=== PATIENT | male | born 1995 | race Caucasian/White ===

== ENCOUNTER 2020-10-20 20:19 | Emergency (ER) | payer MEDICAID, OTHER ==
[~2020-10-20] VITALS: Ht 172.7 cm; Wt 77.0 kg
[~2020-10-20 20:19] MED LIST: CYCL-120 PO; HYDR-4383 PO
[2020-10-20 20:26] VITALS: BP 133/85
== END 2020-10-20 21:23 | disposition left against medical advice (07) ==
LOC: ER 20:21
DX: R06.02 Shortness of breath (principal); Z53.21 Procedure and treatment not carried out due to patient leaving prior to being seen by health care provider

== ENCOUNTER 2021-11-14 16:21 | Inpatient (IN) | payer MEDICAID, OTHER ==
[~2021-11-14] VITALS: Ht 172.7 cm; Wt 63.6 kg
[2021-11-14] MEDS ORDERED: pantoprazole 40MG/D5 100ML BAG 100 ML IV STA (17:08)
[2021-11-14] MEDS ORDERED: normal saline 1000ML IV soln IVB ONE (17:10)
[2021-11-14] MEDS ORDERED: ondansetron 4mg rapidly disintigrating tab PO ONE (17:10)
[2021-11-14] MEDS ORDERED: pantoprazole 40MG/NS 100ML BAG 100 ML IV STA (17:11)
[2021-11-14 17:44] LABS: BASOPHILS % (AUTO) 0.4 % (0-1); EOSINOPHILS # (AUTO) 0.1 X10'3 (0-0.9); EOSINOPHILS % (AUTO) 0.6 % (0-6); HEMATOCRIT 40.6 % (42.0-52.0); HEMOGLOBIN 14.2 g/dl (14.0-17.9); LYMPHOCYTES # (AUTO) 1.4 X10'3 (1.1-4.8); LYMPHOCYTES % (AUTO) 14.6 % (21-51); MEAN CORPUSCULAR HEMOGLOBIN 30.9 PG (27.0-31.0); MEAN CORPUSCULAR HGB CONC 35.1 g/dL (33.0-36.5); MEAN CORPUSCULAR VOLUME 88.1 FL (78-98); MEAN PLATELET VOLUME 7.9 FL (7.4-10.4); MONOCYTES # (AUTO) 0.8 X10'3 (0-0.9); MONOCYTES % (AUTO) 7.9 % (2-12); NEUTROPHILS # (AUTO) 7.3 X10'3 (1.8-7.7); NEUTROPHILS % (AUTO) 76.5 % (42-75); PLATELET COUNT 292 X10'3 (140-440); RED BLOOD COUNT 4.61 X10'6 (4.70-6.10); RED CELL DISTRIBUTION WIDTH 13.1 % (11.5-14.5); WHITE BLOOD COUNT 9.5 X10'3 (4.5-11.0)
[2021-11-14 17:57] LABS: APTT 28 SECONDS (22-32)
[2021-11-14 18:02] LABS: ALANINE AMINOTRANSFERASE 18 U/L (12-78); ALBUMIN/GLOBULIN RATIO 1.1 (1.1-1.5); ALKALINE PHOSPHATASE 76 IU/L (46-116); ANION GAP 11 (8-16); ASPARTATE AMINO TRANSFERASE 13 U/L (10-37); BILIRUBIN,TOTAL 0.5 MG/DL (0.1-1.0); BLOOD UREA NITROGEN 22 MG/DL (7-18); BUN/CREATININE RATIO 26.5 (5.4-32.0); CALCIUM 9.5 MG/DL (8.5-10.1); CHLORIDE 101 MMOL/L (99-107); CREATININE 0.83 MG/DL (0.60-1.10); GLUCOSE 106 MG/DL (70-104); LIPASE < 50 U/L (73-393); POTASSIUM 3.1 MMOL/L (3.5-5.1); SODIUM 141 MMOL/L (135-145); TOTAL CARBON DIOXIDE 29.4 MMOL/L (24-32); TOTAL PROTEIN 7.6 G/DL (6.4-8.2); eGFR > 90 ML/MIN
--- NOTE | 2021-11-14 19:53 | NUR ---
Pt Daily IV fentanyl user. Last use this morning and states he will show withdrawal symptoms tomorrow morning. Pt will advise best venous access.
[2021-11-14] MEDS ORDERED: acetaminophen 650mg rectal suppository RC PRN (20:30)
[2021-11-14] MEDS ORDERED: mag hydrox/Alum hydrox/simeth 30ml oral suspension PO PRN (20:30)
[2021-11-14] MEDS ORDERED: ondansetron 4mg rapidly disintigrating tab PO PRN (20:30)
[2021-11-14] MEDS ORDERED: potassium CL 10mEq/100ml bag 100 ML IV PRN (20:30)
[2021-11-14] MEDS ORDERED: diphenhydrAMINE 25mg capsule PO PRN (20:30)
[2021-11-14] MEDS ORDERED: HYDROmorphone inj. 0.5 MG/0.5 ML DISP.SYRIN IV PRN (20:30)
[2021-11-14] MEDS ORDERED: potassium Cl 20 mEq SR tablet PO PRN (20:30)
[2021-11-14] MEDS ORDERED: metoclopramide 5 mg/ml inj IV PRN (20:30)
[2021-11-14] MEDS ORDERED: morphine 2 MG/ML inj. syringe IV PRN (20:30)
[2021-11-14] MEDS ORDERED: bisacodyl 10mg suppository rectal RC PRN (20:30)
[2021-11-14] MEDS ORDERED: magnesium 2GM in 50ml NS 50 ML IV PRN (20:30)
[2021-11-14] MEDS ORDERED: acetaminophen 325mg tablet PO PRN ×2 (20:30)
[2021-11-14] MEDS ORDERED: magnesium Cl slow-release 64mg tablet PO PRN (20:30)
[2021-11-14] MEDS ORDERED: magnesium 4gm in 100ml NS 100 ML IV PRN (20:30)
[2021-11-14] MEDS ORDERED: magnesium hydroxide 30ml (MOM) UD suspension PO PRN (20:30)
[2021-11-14] MEDS: normal saline 1000ml 1,000 ML IV SCH (20:54)
[2021-11-14] MEDS: pantoprazole 40MG/NS 100ML BAG 100 ML IV SCH ×2 (20:55→21:00)
[2021-11-14] MEDS ORDERED: temazepam 15mg capsule PO PRN (21:00)
[2021-11-14 21:10] LABS: CLARITY,URINE CLEAR (Clear); COLOR,URINE YELLOW (Yellow); GLUCOSE, URINE NEGATIVE (Neg); KETONES,URINE TRACE mg/dl (Neg); LEUKOCYTE ESTERASE ,URINE NEGATIVE (Neg); NITRITES, URINE NEGATIVE (Neg); OCCULT BLOOD,URINE NEGATIVE (Neg); PROTEIN,URINE NEGATIVE (Neg); UROBILINOGEN,URINE 0.2 E.U/dL (0.2-1.0)
[2021-11-14 21:11] LABS: CREATINE KINASE 119 U/L (39-308); MAGNESIUM 2.1 MG/DL (1.5-2.4); PHOSPHORUS 3.6 MG/DL (2.3-4.5)
[2021-11-14 21:14] LABS: UA COLLECTION TYPE CLN CATCH MIDSTREAM
[2021-11-14 21:19] LABS: URINE AMPHETAMINE SCREEN POSITIVE (Neg); URINE BARBITUATE SCREEN NEGATIVE (Neg); URINE BENZODIAZEPINES SCREEN NEGATIVE (Neg); URINE CANNABINOID SCREEN POSITIVE (Neg); URINE COCAINE SCREEN NEGATIVE (Neg); URINE METHADONE SCREEN NEGATIVE (Neg); URINE OPIATE SCREEN NEGATIVE (Neg); URINE PHENCYCLIDINE SCREEN NEGATIVE (Neg)
--- NOTE | 2021-11-14 21:30 | NUR ---
okayed clear liquids as tolerated until midnight. No red liquids.
[2021-11-14] MEDS: morphine 2 MG/ML inj. syringe IV PRN (21:40)
[2021-11-15] MEDS: pantoprazole 40MG/NS 100ML BAG 100 ML IV SCH ×7 (01:00→23:13)
[2021-11-15] MEDS: ondansetron/PF 4mg/2ml inj IV PRN ×2 (01:31→09:28)
[2021-11-15] MEDS: morphine 2 MG/ML inj. syringe IV PRN ×5 (01:31→23:56)
[2021-11-15] MEDS: normal saline 1000ml 1,000 ML IV SCH ×2 (06:30→16:58)
[2021-11-15 08:02] LABS: BASOPHILS # (AUTO) 0.1 X10'3 (0-0.2); BASOPHILS % (AUTO) 0.8 % (0-1); EOSINOPHILS # (AUTO) 0.1 X10'3 (0-0.9); EOSINOPHILS % (AUTO) 1.4 % (0-6); HEMATOCRIT 27.4 % (42.0-52.0); HEMOGLOBIN 9.6 g/dl (14.0-17.9); LYMPHOCYTES # (AUTO) 2.1 X10'3 (1.1-4.8); LYMPHOCYTES % (AUTO) 31.8 % (21-51); MEAN CORPUSCULAR HEMOGLOBIN 31.2 PG (27.0-31.0); MEAN CORPUSCULAR HGB CONC 35.1 g/dL (33.0-36.5); MEAN CORPUSCULAR VOLUME 88.7 FL (78-98); MEAN PLATELET VOLUME 8.5 FL (7.4-10.4); MONOCYTES # (AUTO) 0.5 X10'3 (0-0.9); MONOCYTES % (AUTO) 7.9 % (2-12); NEUTROPHILS # (AUTO) 3.9 X10'3 (1.8-7.7); NEUTROPHILS % (AUTO) 58.1 % (42-75); PLATELET COUNT 233 X10'3 (140-440); WHITE BLOOD COUNT 6.6 X10'3 (4.5-11.0)
[2021-11-15] MEDS: K and/or MAG REPLACEMENT MC SCH ×2 (08:19→20:00)
[2021-11-15] MEDS: nicotine 21mg patch - 24 hr TD SCH (08:19)
[2021-11-15] MEDS: piperacillin/tazo 3.375gm/50ml 50 ML IV SCH ×2 (08:19)
[2021-11-15] MEDS: docusate sod 100mg capsule PO SCH ×2 (08:19→19:31)
[2021-11-15 08:49] LABS: ALANINE AMINOTRANSFERASE 11 U/L (12-78); ALBUMIN 2.7 G/DL (3.4-5.0); ALBUMIN/GLOBULIN RATIO 0.9 (1.1-1.5); ALKALINE PHOSPHATASE 44 IU/L (46-116); ANION GAP 9 (8-16); ASPARTATE AMINO TRANSFERASE 13 U/L (10-37); BILIRUBIN,TOTAL 0.4 MG/DL (0.1-1.0); BLOOD UREA NITROGEN 30 MG/DL (7-18); BUN/CREATININE RATIO 39.5 (5.4-32.0); CALCIUM 7.9 MG/DL (8.5-10.1); CHLORIDE 108 MMOL/L (99-107); CREATININE 0.76 MG/DL (0.60-1.10); GLUCOSE 84 MG/DL (70-104); MAGNESIUM 1.8 MG/DL (1.5-2.4); SODIUM 141 MMOL/L (135-145); TOTAL CARBON DIOXIDE 24.2 MMOL/L (24-32); TOTAL PROTEIN 5.6 G/DL (6.4-8.2); eGFR > 90 ML/MIN
[2021-11-15] MEDS ORDERED: NO HOME MEDS (10:29)
--- NOTE | 2021-11-15 10:35 | NUR ---
To GI Lab. Transported via [facility] by FERNANDA.
[2021-11-15 10:43] VITALS: BP 136/67
[2021-11-15] MEDS ORDERED: fentaNYL/PF 50MCG/1 ML 2ML syringe ONE (10:49)
[2021-11-15] MEDS ORDERED: MIDAZolam 1 MG/ML 5ML VIAL ONE (10:49)
[2021-11-15] MEDS ORDERED: LIDOcaine Viscous 15ml cup ONE (10:49)
[2021-11-15 11:51] VITALS: BP 103/57
[2021-11-15 12:01] VITALS: BP 105/48
[2021-11-15 12:11] VITALS: BP 106/49
[2021-11-15 12:21] VITALS: BP 105/53
--- NOTE | 2021-11-15 12:37 | NUR ---
Report given to FERNANDA Joshi on the Surgical floor.
[2021-11-15] MEDS: HYDROcodone/acetaminophen 10/325mg tab PO PRN (17:11)
[2021-11-15 18:00] VITALS: BP 131/68
--- NOTE | 2021-11-15 18:24 | NUR ---
3 attempts made to start a second IV site due to incompatibility of zosyn and protonix. zosyn was unable to be hung. ER to send rn to ale[facility] start an IJ per day charge
[2021-11-15 19:33] LABS: HEMATOCRIT 25.7 % (42.0-52.0); HEMOGLOBIN 8.9 g/dl (14.0-17.9); MEAN CORPUSCULAR HEMOGLOBIN 31.2 PG (27.0-31.0); MEAN CORPUSCULAR HGB CONC 34.8 g/dL (33.0-36.5); MEAN CORPUSCULAR VOLUME 89.6 FL (78-98); MEAN PLATELET VOLUME 7.9 FL (7.4-10.4); PLATELET COUNT 241 X10'3 (140-440); RED BLOOD COUNT 2.86 X10'6 (4.70-6.10); RED CELL DISTRIBUTION WIDTH 12.9 % (11.5-14.5)
--- NOTE | 2021-11-15 19:34 | NUR ---
report received from Madelyn mccann to have a second line IV for medication ER call waiting for them patient complaint af pain 10 out of 10 morphine giving as order.
[2021-11-15] MEDS: LORazepam 2 mg/ml vial IV PRN ×2 (21:09→23:56)
[2021-11-15] MEDS: diphenhydrAMINE 50 mg/ml inj IV PRN (21:10)
[2021-11-16] VITALS: BP 132/84
[2021-11-16] MEDS: pantoprazole 40MG/NS 100ML BAG 100 ML IV SCH ×5 (01:00→20:54)
[2021-11-16] MEDS: piperacillin/tazo 3.375gm/50ml 50 ML IV SCH ×4 (01:33→23:38)
[2021-11-16] MEDS: normal saline 1000ml 1,000 ML IV SCH ×3 (02:30→22:30)
[2021-11-16] MEDS: LORazepam 2 mg/ml vial IV PRN ×2 (05:10→16:40)
[2021-11-16] MEDS: morphine 2 MG/ML inj. syringe IV PRN ×2 (05:10→11:29)
[2021-11-16 05:55] LABS: BASOPHILS % (AUTO) 0.5 % (0-1); EOSINOPHILS % (AUTO) 0.3 % (0-6); HEMATOCRIT 24.9 % (42.0-52.0); HEMOGLOBIN 8.9 g/dl (14.0-17.9); LYMPHOCYTES # (AUTO) 1.4 X10'3 (1.1-4.8); LYMPHOCYTES % (AUTO) 27.4 % (21-51); MEAN CORPUSCULAR HEMOGLOBIN 31.6 PG (27.0-31.0); MEAN CORPUSCULAR HGB CONC 35.9 g/dL (33.0-36.5); MEAN CORPUSCULAR VOLUME 88.2 FL (78-98); MEAN PLATELET VOLUME 7.6 FL (7.4-10.4); MONOCYTES # (AUTO) 0.3 X10'3 (0-0.9); MONOCYTES % (AUTO) 5.7 % (2-12); NEUTROPHILS # (AUTO) 3.5 X10'3 (1.8-7.7); NEUTROPHILS % (AUTO) 66.1 % (42-75); PLATELET COUNT 256 X10'3 (140-440); RED BLOOD COUNT 2.82 X10'6 (4.70-6.10); RED CELL DISTRIBUTION WIDTH 12.6 % (11.5-14.5); WHITE BLOOD COUNT 5.2 X10'3 (4.5-11.0)
[2021-11-16 06:19] LABS: ALANINE AMINOTRANSFERASE 14 U/L (12-78); ALKALINE PHOSPHATASE 53 IU/L (46-116); ANION GAP 13 (8-16); ASPARTATE AMINO TRANSFERASE 15 U/L (10-37); BILIRUBIN,TOTAL 0.5 MG/DL (0.1-1.0); BLOOD UREA NITROGEN 13 MG/DL (7-18); BUN/CREATININE RATIO 17.1 (5.4-32.0); CALCIUM 8.6 MG/DL (8.5-10.1); CHLORIDE 107 MMOL/L (99-107); CREATININE 0.76 MG/DL (0.60-1.10); GLUCOSE 76 MG/DL (70-104); MAGNESIUM 1.9 MG/DL (1.5-2.4); POTASSIUM 3.9 MMOL/L (3.5-5.1); SODIUM 140 MMOL/L (135-145); TOTAL CARBON DIOXIDE 19.9 MMOL/L (24-32); eGFR > 90 ML/MIN
[2021-11-16] MEDS: K and/or MAG REPLACEMENT MC SCH ×2 (06:28→20:00)
[2021-11-16] MEDS: docusate sod 100mg capsule PO SCH ×2 (06:28→20:57)
--- NOTE | 2021-11-16 06:44 | NUR ---
Report giving to Gisel.
[2021-11-16 07:00] VITALS: BP 123/69
[2021-11-16] MEDS: nicotine 21mg patch - 24 hr TD SCH (07:34)
[2021-11-16] MEDS: HYDROcodone/acetaminophen 5mg/325mg tablet PO PRN ×2 (07:38→16:40)
--- NOTE | 2021-11-16 09:47 | NUR ---
VO from dr hannon for clear liquid diet and ok to get a midline iv
--- NOTE | 2021-11-16 11:43 | NUR ---
Met with patient in regards to substance use and to see if patient wanted resources for treatment options. Patient would like to go to an inpatient rehab facility. I gave patient [facility] number to start the process. I also gave patient my card to call me with any questions.
[2021-11-16 20:00] VITALS: BP 114/64
[2021-11-16] MEDS: lactobacillus rhamnosus 10,000 MMU CELLS/CAPSULE PO SCH (20:57)
[2021-11-17] VITALS: BP 123/71
[2021-11-17] MEDS: HYDROcodone/acetaminophen 10/325mg tab PO PRN ×2 (00:59→11:13)
[2021-11-17] MEDS: pantoprazole 40MG/NS 100ML BAG 100 ML IV SCH ×3 (01:00→07:37)
[2021-11-17] MEDS: diphenhydrAMINE 50 mg/ml inj IV PRN (01:09)
[2021-11-17 07:00] VITALS: BP 127/76
[2021-11-17] MEDS: HYDROcodone/acetaminophen 5mg/325mg tablet PO PRN ×2 (07:36→10:01)
[2021-11-17] MEDS: nicotine 21mg patch - 24 hr TD SCH (07:36)
[2021-11-17] MEDS: normal saline 1000ml 1,000 ML IV SCH (07:37)
[2021-11-17] MEDS: lactobacillus rhamnosus 10,000 MMU CELLS/CAPSULE PO SCH (07:37)
[2021-11-17] MEDS: docusate sod 100mg capsule PO SCH (07:37)
[2021-11-17] MEDS: piperacillin/tazo 3.375gm/50ml 50 ML IV SCH (07:37)
[2021-11-17] MEDS: LORazepam 2 mg/ml vial IV PRN (09:49)
[2021-11-17 10:32] LABS: BASOPHILS % (AUTO) 0.2 % (0-1); EOSINOPHILS % (AUTO) 0 % (0-6); HEMATOCRIT 24.8 % (42.0-52.0); HEMOGLOBIN 8.8 g/dl (14.0-17.9); LYMPHOCYTES # (AUTO) 1.2 X10'3 (1.1-4.8); LYMPHOCYTES % (AUTO) 17.8 % (21-51); MEAN CORPUSCULAR HEMOGLOBIN 31.4 PG (27.0-31.0); MEAN CORPUSCULAR HGB CONC 35.4 g/dL (33.0-36.5); MEAN CORPUSCULAR VOLUME 88.7 FL (78-98); MEAN PLATELET VOLUME 7.5 FL (7.4-10.4); MONOCYTES # (AUTO) 0.4 X10'3 (0-0.9); MONOCYTES % (AUTO) 6.4 % (2-12); NEUTROPHILS # (AUTO) 5.1 X10'3 (1.8-7.7); NEUTROPHILS % (AUTO) 75.6 % (42-75); PLATELET COUNT 303 X10'3 (140-440); RED CELL DISTRIBUTION WIDTH 12.8 % (11.5-14.5); WHITE BLOOD COUNT 6.8 X10'3 (4.5-11.0)
[2021-11-17 10:43] LABS: ALANINE AMINOTRANSFERASE 15 U/L (12-78); ALBUMIN 3.2 G/DL (3.4-5.0); ALBUMIN/GLOBULIN RATIO 1.1 (1.1-1.5); ALKALINE PHOSPHATASE 51 IU/L (46-116); ANION GAP 11 (8-16); ASPARTATE AMINO TRANSFERASE 10 U/L (10-37); BILIRUBIN,TOTAL 0.2 MG/DL (0.1-1.0); BLOOD UREA NITROGEN 7 MG/DL (7-18); BUN/CREATININE RATIO 7.7 (5.4-32.0); CALCIUM 8.3 MG/DL (8.5-10.1); CHLORIDE 109 MMOL/L (99-107); CREATININE 0.91 MG/DL (0.60-1.10); GLUCOSE 140 MG/DL (70-104); SODIUM 142 MMOL/L (135-145); TOTAL CARBON DIOXIDE 22.3 MMOL/L (24-32); eGFR > 90 ML/MIN
[2021-11-17 11:00] VITALS: BP 131/78
[2021-11-17] MEDS: K and/or MAG REPLACEMENT MC SCH (11:11)
[2021-11-17] MEDS: potassium Cl 20 mEq SR tablet PO PRN ×2 (11:13→13:21)
[2021-11-17] MEDS ORDERED: SUCR1TAB34 PO (13:22)
[2021-11-17] MEDS ORDERED: PANT40TA54 PO (13:22)
[2021-11-17] MEDS ORDERED: POTA10TA37 PO (13:22)
[2021-11-17] MEDS ORDERED: LACT1CAP26 PO (13:22)
--- NOTE | 2021-11-17 13:22 | NUR ---
TO from dr brooks to give 40 PO K stat and redraw K. pt to be d/c home this afternoon
--- NOTE | 2021-11-17 14:25 | NUR ---
I witnessed patient leave his room with his belongings walking at a fast pace. I called out to patient to see if he had his discharge paperwork, because I know we were waiting to redraw patients K+ level prior to discharge. Patient would not stop walking and continued down the hallway at a fast pace. I told patient I need to make sure your IV is not longer in place. Patient turned around and showed me his arm and it was obvious patient pulled his own IV out and had placed kleenex over site and tape in place. All the while patient continued to walk out of hospital at a fast pace. Primary RN Madelyn attempted to follow patient out to convince him to stay to have his labs redrawn. Patient refused. Dr Meeks aware patient left AMA.
--- NOTE | 2021-11-17 14:28 | NUR ---
Message: Madelyn Surg [id number] Re: [id number] Gavino pulled out his IV and left would not let us speak to him Custom Responses: promotional table spacer Transaction number: [id number]
== END 2021-11-17 14:30 | disposition left against medical advice (07) | DRG 241 ==
LOC: ER 16:21 → ED HOLD 20:30 → UNDOADMIN 20:30 → ED HOLD 20:39 → SUR 3N 11-15 13:19 → ED HOLD 11-15 13:19 → SUR 3N 11-15 14:23
PROVIDERS: ADMIT Family Medicine; ATTEND Family Medicine
PROC: 0DB68ZX Excision of Stomach, Via Natural or Artificial Opening Endoscopic, Diagnostic (ICD-10-PCS; principal; 2021-11-15)
DX: K26.4 Chronic or unspecified duodenal ulcer with hemorrhage (principal); E86.0 Dehydration; E87.6 Hypokalemia; F12.10 Cannabis abuse, uncomplicated; F15.129 Other stimulant abuse with intoxication, unspecified; K29.70 Gastritis, unspecified, without bleeding; F17.210 Nicotine dependence, cigarettes, uncomplicated; F32.A Depression, unspecified; K21.9 Gastro-esophageal reflux disease without esophagitis; D62 Acute posthemorrhagic anemia; R82.4 Acetonuria; Z53.29 Procedure and treatment not carried out because of patient's decision for other reasons; G89.4 Chronic pain syndrome; Z59.00 Homelessness unspecified; Z87.442 Personal history of urinary calculi; Z79.899 Other long term (current) drug therapy; Z71.6 Tobacco abuse counseling; Z71.51 Drug abuse counseling and surveillance of drug abuser
CPT/HCPCS: 36410; 36415; 36569; 43239; 74176; 80053; 80305; 82550; 83036; 83690; 83735; 83880; 84100; 84443; 85025; 85027; 85610; 85730; 86885; 86900; 86901; 96361; 96374; 99152; 99285; A4620; C1751; C9113; G0378; J1200; J2060; J2250; J2270; J2405; J2543; J3010; J7030; J7040